=== PATIENT | female | born 1965 | race Caucasian/White ===

== ENCOUNTER 2017-06-28 07:58 | Day surgery (SDC) | payer BC ==
[2017-06-28] MEDS ORDERED: PROPOFOL 10 MG/ML VIAL IV ONE (07:59)
[2017-06-28] MEDS ORDERED: LIDOCAINE 2% MDV (20MG/ML) 20ML VIAL IV ONE (07:59)
[2017-06-28] MEDS ORDERED: FENTANYL PF 100MCG/2ML VIAL IV ONE (07:59)
--- NOTE | 2017-06-29 13:30 | Operative Note ---
DATE OF SURGERY: 06/28/2017 OPERATION: ESOPHAGOGASTRODUODENOSCOPY with multiple biopsies. 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 Patient doing well. Denies complaints. Currently takes Nexium 40 mg daily. Upper endoscopy is repeated at this time for evaluation. ANESTHESIA: Intravenous sedation was administered by the department of anesthesiology and included Diprivan titrated to effect. PROCEDURE: Following informed consent from this alert individual, including a discussion of the risks and benefits of the procedure and an opportunity for the patient to ask questions, the patient was in the left lateral decubitus position. The Olympus [id number] video endoscope was inserted into the esophagus without resistance. The proximal esophagus had a normal appearance with normal folds and distensibility. The mid esophagus likewise was free from mucosal changes. The distal esophageal segment was free from ulcerations and erosions. There was some slight irregularity at the squamocolumnar junction and multiple biopsies from this site were taken. The stomach was entered and found to have multiple gastric fundal polyps. No other mucosal changes were appreciated. The antrum evaluated circumferentially was normal. The pylorus was patent. The duodenal bulb, sweep and descending duodenum were examined in a serial fashion and found to be normal. The endoscope was then withdrawn back into the body of the stomach. Retroflexion accomplished following air insufflation failed to demonstrate any additional changes. Again fundal polyps were noted. The endoscope was then straightened and withdrawn to the distal esophagus where again biopsies were taken from the GE junction. The instrument was then further withdrawn and removed from the patient. She tolerated the procedure well and was returned to the recovery area in stable condition. IMPRESSION: 1. Slight irregularity of the squamocolumnar junction, biopsies taken to evaluate for Springer's epithelium. 2. Multiple gastric fundal polyps. RECOMMENDATION: Further recommendations will be forthcoming pending results of biopsy obtained today. Followup will also be with Dr. Lombardi. As always, thank you for allowing me to participate in the care of your patient. CC: Rose Lombardi MD [facility]
--- NOTE | 2017-06-29 13:30 | Operative Note ---
DATE OF SURGERY: 06/28/2017 OPERATION: COLONOSCOPY to the cecum with multiple biopsies. INDICATION: Prior history of adenomatous polyp. The patient returns at this time for surveillance. Her last examination was in 2013. ANESTHESIA: Intravenous sedation was administered by the department of anesthesiology and included Diprivan titrated to effect. PROCEDURE: Following informed consent from this alert individual including a discussion of the risks and benefits of the procedure and an opportunity for the patient to ask questions, the patient was in the left lateral decubitus position. A digital rectal examination was performed. No abnormalities were noted. Following this, the Olympus [id number] video colonoscope was inserted into the rectum without resistance. The rectal mucosa had a normal appearance with normal folds and distensibility. The colonoscope was advanced up through the colon to the level of the cecum without much difficulty. Throughout the bowel the mucosa appeared normal, the folds were normal, and the bowel was fairly well distensible. The cecum was defined by noting the appendiceal orifice and ileocecal valve. The colon preparation was good. Retroflexion in the cecum was endoscopically unremarkable. The endoscope was then straightened. At the base of the cecum, there was a small 3-4 mm submucosal polyp noted which was removed with biopsy forceps. It may be a submucosal lipoma. From this point, the colonoscope was then withdrawn. No changes were noted until the rectum was reached. Within the proximal rectum was a diminutive 3 mm polyp noted which was removed with biopsy forceps. Retroflexion in the rectum was endoscopically normal. The endoscope was straightened and removed. The patient tolerated the procedure well and was returned to the recovery area in stable condition. IMPRESSION: 1. Small 3-4 mm submucosal nodule at the cecum removed with biopsy forceps. This may represent a lipoma. 2. Diminutive rectal polyp removed with biopsy forceps. RECOMMENDATIONS: The patient was advised she should receive a copy of her pathology report at home in the next 2-3 weeks. If not, she was asked to call my office to review the results of testing today. Further recommendations forthcoming pending those results. Followup will also be with Dr. Lombardi. As always, thank you for allowing me to participate in the care of your patient. CC: MD RACIEL Turcios
== END 2017-06-28 10:15 | disposition home or self-care (01) ==
LOC: HOP 07:58
PROVIDERS: ATTEND Internal Medicine Gastroenterology
DX: Z86.010 Personal history of colon polyps (principal); K62.1 Rectal polyp; Z85.3 Personal history of malignant neoplasm of breast
CPT/HCPCS: 81025; 43239; 45380; 00813; J3010